=== PATIENT | male | born 1990 | race Caucasian/White ===

== ENCOUNTER 2018-04-18 18:43 | Emergency (ER) | payer MEDICAID ==
[2018-04-18] MEDS: traMADol 50 MG TAB PO (19:29)
[2018-04-18] MEDS: HYDROCODONE/APAP (5/325) TAB PO (21:41)
== END 2018-04-18 23:40 | disposition home or self-care (01) ==
LOC: FTE 23:40
DX: S92.324A Nondisplaced fracture of second metatarsal bone, right foot, initial encounter for closed fracture (principal); X58.XXXA Exposure to other specified factors, initial encounter; Y92.9 Unspecified place or not applicable
CPT/HCPCS: 29505; 73630; 73650; 73700; 99284-25